=== PATIENT | male | born 1960 | race African-American/Black ===

== ENCOUNTER 2019-02-28 15:50 | Emergency (ER) | payer MEDICAID ==
[~2019-02-28] VITALS: Ht 182.9 cm; Wt 63.0 kg
[2019-02-28] MEDS ORDERED: HYDROCODONE/ACETAMINOPHEN 5/325MG TABLET PO ONE (16:45)
[2019-02-28] MEDS ORDERED: KETOROLAC 30MG/ML VIAL IM ONE (18:30)
[2019-02-28 19:45] VITALS: BP 147/76
[2019-02-28] MEDS ORDERED: MORPHINE SULFATE 10 MG/ML CPJ IM ONE (19:45)
[2019-02-28] MEDS ORDERED: ONDANSETRON 4MG ODT PO ONE (19:45)
== END 2019-02-28 20:31 | disposition home or self-care (01) ==
LOC: ER 15:50
DX: M25.572 Pain in left ankle and joints of left foot (principal); F17.200 Nicotine dependence, unspecified, uncomplicated; Z90.49 Acquired absence of other specified parts of digestive tract
CPT/HCPCS: 96372; 99283; J1885; J2270; Q0162; Z7610

== ENCOUNTER 2019-03-07 00:30 | Emergency (ER) | payer MEDICAID, OTHER ==
[~2019-03-07] VITALS: Ht 180.3 cm; Wt 68.0 kg
[2019-03-07] MEDS ORDERED: KETOROLAC 60MG/2ML VIAL IM ONE (01:30)
[2019-03-07] MEDS ORDERED: HYDROCODONE/ACETAMINOPHEN 10/325MG TABLET PO ONE (01:30)
[2019-03-07 01:45] VITALS: BP 137/95
== END 2019-03-07 03:05 | disposition home or self-care (01) ==
LOC: ER 00:30
DX: M25.572 Pain in left ankle and joints of left foot (principal); F12.10 Cannabis abuse, uncomplicated; F17.210 Nicotine dependence, cigarettes, uncomplicated; Z87.828 Personal history of other (healed) physical injury and trauma; Z90.49 Acquired absence of other specified parts of digestive tract; Z98.1 Arthrodesis status
CPT/HCPCS: 73610; 96372; 99283; J1885

== ENCOUNTER 2023-12-24 06:29 | Emergency (ER) | payer MEDICAID, OTHER ==
[~2023-12-24] VITALS: Ht 182.9 cm; Wt 82.0 kg
[2023-12-24 06:31] VITALS: O2SAT 98
[2023-12-24] MEDS ORDERED: LIDOCAINE 5% PATCH TOP STA (06:33)
[2023-12-24] MEDS ORDERED: KETOROLAC 30MG/ML VIAL IM ONE (06:45)
[2023-12-24] MEDS: KETOROLAC 30MG/ML VIAL IM NR (08:00)
[2023-12-24] MEDS: LIDOCAINE 5% PATCH TOP NR (08:00)
[2023-12-24] MEDS: METHOCARBAMOL 750MG TABLET PO SCH (08:00)
[2023-12-24 09:13] LABS: CLARITY URINE CLEAR (CLEAR); COLOR URINE YELLOW (YELLOW); GLUCOSE URINE NEGATIVE (NEGATIVE); KETONES URINE NEGATIVE (NEGATIVE); LEUKOCYTE ESTERASE URINE NEGATIVE (NEGATIVE); NITRITE URINE NEGATIVE (NEGATIVE); OCCULT BLOOD URINE NEGATIVE (NEGATIVE); PROTEIN URINE TRACE (NEGATIVE)
[2023-12-24] MEDS ORDERED: LIDO700A15 TP (09:19)
[2023-12-24] MEDS ORDERED: IBUP-2028 MT (09:19)
[2023-12-24] MEDS ORDERED: METH-653 MT (09:19)
[2023-12-24 09:26] LABS: *AMPHETAMINES SCREEN URINE NEGATIVE (NEGATIVE); *BARBITURATES SCREEN URINE NEGATIVE (NEGATIVE); *BENZODIAZEPINES SCREEN URINE NEGATIVE (NEGATIVE); *COCAINE SCREEN URINE NEGATIVE (NEGATIVE); BACTERIA URINE NONE SEEN; RBC URINE NONE SEEN /hpf (0-2); SQUAMOUS EPITHELIAL CELL URINE RARE /lpf (RARE/1+); WBC URINE 0-2 /hpf (0-2); YEAST URINE NONE SEEN
[2023-12-24 09:27] LABS: CANNABINOID URINE SCREEN NEGATIVE (NEGATIVE); ECSTASY MDMA SCREEN URINE NEGATIVE (NEGATIVE); METHADONE URINE SCREEN Pos (NEGATIVE); OPIATES URINE SCREEN NEGATIVE (NEGATIVE); PHENCYCLIDINE URINE SCREEN NEGATIVE (NEGATIVE)
[2023-12-24 09:35] VITALS: BP 147/71; PULSE 98; RESP 19; TEMP 37.11408; O2SAT 98
[2023-12-24] MEDS ORDERED: ONDA4TAB50 MT (22:48)
== END 2023-12-24 09:41 | disposition home or self-care (01) ==
LOC: ER 06:39
DX: G89.29 Other chronic pain (principal); M54.50 Low back pain, unspecified; F19.10 Other psychoactive substance abuse, uncomplicated; F12.90 Cannabis use, unspecified, uncomplicated; F14.90 Cocaine use, unspecified, uncomplicated; Z90.49 Acquired absence of other specified parts of digestive tract; Z98.890 Other specified postprocedural states
CPT/HCPCS: 80305; 81003; 72100; 96372; 99284; J1885; Z7610 ×3

== ENCOUNTER 2023-12-24 21:25 | Emergency (ER) | payer MEDICAID, MEDICARE ==
[~2023-12-24] VITALS: Ht 175.3 cm; Wt 70.0 kg
[~2023-12-24 21:25] MED LIST: IBUP-2028 MT; LIDO700A15 TP; METH-653 MT
[2023-12-24 21:29] VITALS: TEMP 98.1; O2SAT 98
[2023-12-24] MEDS ORDERED: ONDA4TAB50 MT (22:48)
[2023-12-24] MEDS: ONDANSETRON 4MG ODT PO ONE (23:03)
[2023-12-24] MEDS: ACETAMINOPHEN 325MG TABLET PO ONE (23:03)
[2023-12-25 01:05] VITALS: BP 140/60; PULSE 80; RESP 20; O2SAT 99
== END 2023-12-25 01:05 | disposition home or self-care (01) ==
LOC: ER 21:25
DX: F11.20 Opioid dependence, uncomplicated (principal); J44.9 Chronic obstructive pulmonary disease, unspecified; F12.10 Cannabis abuse, uncomplicated; Z90.49 Acquired absence of other specified parts of digestive tract
CPT/HCPCS: 99283; Q0162